=== PATIENT | male | born 1990 | race Caucasian/White ===

== ENCOUNTER → 2022-12-19 | Outpatient (CLI) | payer MEDICAID | END | disposition home or self-care (01) | LOC: LABWHC1 09:51 | PROVIDERS: ATTEND Family Medicine | DX: Z53.9 Procedure and treatment not carried out, unspecified reason (principal) ==

== ENCOUNTER → 2022-12-21 | Outpatient (CLI) | payer MEDICAID ==
[2022-12-21 16:20] LABS: Basophils # (A) 0.08 X 10*3/uL (0.00-0.10); Basophils % (A) 1.9 %; Eosinophils # (A) 0.17 X 10*3/uL (0.04-0.35); HCT 44.9 % (39.6-50.0); HGB 14.7 d/dL (13.0-17.0); Lymphocytes # (A) 1.97 X 10*3/uL (0.90-5.00); Lymphocytes % (A) 46.9 %; MCHC 32.7 d/dL (32.0-37.0); MCV 94.7 FL (80.0-97.0); Monocytes # (A) 0.43 X 10*3/uL (0.20-1.00); Monocytes % (A) 10.2 %; NRBC Per 100 WBC 0 X 10*3/uL (0.00-0.01); Neutrophils # (A) 1.54 X 10*3/uL (1.80-7.70); Neutrophils % (A) 36.8 %; Platelet Count 187 X 10*3/uL (140-440); RBC 4.74 X 10*6/uL (4.40-5.60); RDW 11.3 % (11.5-14.5)
[2022-12-21 16:43] LABS: ALT 17 U/L (10-49); AST 22 U/L (14-35); Albumin 4.5 d/dL (3.8-4.9); Albumin/Globulin Ratio 2.14 Ratio (1.60-3.17); Alkaline Phosphatase 49 U/L (41-126); Blood Urea Nitrogen 22.9 mg/dL (9.0-27.0); Calcium 9.5 mg/dL (8.7-10.3); Carbon Dioxide 25.4 mmol/L (21.6-31.8); Chloride 106 mmol/L (96-109); Chol/HDL Ratio 2.49 Ratio; Globulin 2.1 d/dL (1.6-3.3); Glucose 93 mg/dL (70-110); LDL Cholesterol,Calculated 96.9 mg/dL (0.0-131.0); Sodium 142 mmol/L (135-145); Total Bilirubin 1.3 mg/dL (0.3-1.2); Total Protein 6.6 d/dL (6.2-8.2); VLDL Calculation 10.68 mg/dL (5.00-40.00)
== END | disposition home or self-care (01) ==
LOC: LABWHC1 07:04
PROVIDERS: ATTEND Family Medicine
DX: Z00.00 Encounter for general adult medical examination without abnormal findings (principal); E87.8 Other disorders of electrolyte and fluid balance, not elsewhere classified; E83.51 Hypocalcemia; N28.9 Disorder of kidney and ureter, unspecified; D64.9 Anemia, unspecified; E11.9 Type 2 diabetes mellitus without complications; E78.5 Hyperlipidemia, unspecified; K75.9 Inflammatory liver disease, unspecified; R74.01 Elevation of levels of liver transaminase levels
CPT/HCPCS: 36415; 80053; 80061; 82306; 85025; 86850; 86900; 86901

== ENCOUNTER → 2024-08-02 | Outpatient (CLI) | payer MEDICAID ==
--- NOTE | 2024-08-03 16:14 | MR ---
EXAMINATION TYPE: MR foot LT wo/w con DATE OF EXAM: 08/02/2024 3:05 PM COMPARISON: None. CLINICAL INDICATION: Male, 33 years old with history of Soft tissue mass; PHH, Left foot mass x1 year -Located on top of 3rd toe, No marker used due to small anatomy TECHNIQUE: Multiplanar, multisequence MR imaging of the forefoot was performed administration of IV gadolinium contrast. MR contrast: IV Contrast: 8 mL Gadobutrol ( none if empty) FINDINGS: High T2 /T1 signal lesion near the medial aspect of the third digit which immediately abuts the proxi mal interphalangeal joint of the third digit. Area measures roughly 9 x 5 x 11 mm and is predominantl y in the subcutaneous tissues however there does appear to be appear impression/mild and extension in to the middle phalanx. There are nonaggressive features of this lesion with well-circumscribed margin s. There is no evidence of bone marrow edema or fracture. There is no periosteal reaction. Medial and lateral hallux sesamoids have a normal appearance. There is no evidence of a plantar plate injury. Musculature demonstrates age-appropriate signal and volume. There is no evidence of significant subcu taneous soft tissue edema. There is no organized soft tissue fluid collection. There is no evidence of a joint effusion. There is no evidence of synovitis. There is no evidence of intermetatarsal bursitis. No Mortons neuroma is present. Flexor tendons are intact. Extensor tendons are intact. No evidence of tenosynovitis. Lisfranc ligament proper is intact. Capsular ligaments are intact. IMPRESSION: Nonaggressive appearing lesion near the third digit middle phalanx along the medial aspect measuring 9 x 5 x 11 mm which is predominantly in subcutaneous tissues but slightly enters into the third digit middle phalanx cortex. Differential considerations include ganglion cyst versus less likely protuber ant enchondroma versus giant cell tumor versus other. [facility], , 08/03/2024 4:11 PM
== END | disposition home or self-care (01) ==
LOC: RADMRIMAIN 14:03
PROVIDERS: ATTEND Orthopaedic Surgery
DX: R22.42 Localized swelling, mass and lump, left lower limb (principal); M79.672 Pain in left foot
CPT/HCPCS: 73720; A9585